=== PATIENT | female | born 1950 | race Caucasian/White ===

== ENCOUNTER 2017-05-03 11:53 | Emergency (ER) | payer OTHER ==
[2017-05-03 12:12] VITALS: BMI 26.9
--- NOTE | 2017-05-03 15:08 | PDOC ---
Attending Attestation - Resident Resident Name: Anup Castellon - ED Attending Attestation I have performed the following: I have examined & evaluated the patient, The case was reviewed & discussed with the resident, I agree w/resident's findings & plan, Exceptions are as noted - Medical Decision Making 05/03/17 15:08 I, Dr. Candice Alejandro, DO, attest that this document has been prepared under my direction and personally reviewed by me in its entirety. I further attest, that it accurately reflects all work, treatment, procedures and medical decision -making performed by me.
[2017-05-03 16:07] LABS: BASOPHIL 0.9 % (0-2.0); EOSINOPHIL 1.8 % (0-4.5); MCH 31.3 pg (25.7-33.7); MCHC 34.5 g/dl (32.0-36.0); MEAN CELL VOLUME 90.7 fl (80-96); MEAN PLT VOLUME 7.3 fl (7.5-11.1); NEUTROPHILS 49.5 % (42.8-82.8); PLATELET COUNT 299 K/MM3 (134-434); RDW 13.3 % (11.6-15.6); WHITE BLOOD COUNT 9.6 K/mm3 (4.0-10.0)
[2017-05-03 16:23] LABS: URINE APPEARANCE CLEAR; URINE BILIRUBIN NEGATIVE (NEGATIVE); URINE BLOOD NEGATIVE (NEGATIVE); URINE COLOR STRAW; URINE GLUCOSE (UA) NEGATIVE (NEGATIVE); URINE KETONE TRACE (NEGATIVE); URINE NITRITE NEGATIVE (NEGATIVE); URINE PROTEIN NEGATIVE (NEGATIVE); URINE UROBILINOGEN NEGATIVE mg/dL (0.2-1.0)
[2017-05-03] MEDS ORDERED: ACETAMINOPHEN 1000 MG/100 ML VIAL (NON FORMULARY) IVPB ONE (16:28)
[2017-05-03] MEDS ORDERED: ACETAMINOPHEN INJECTION 100 ML IVPB ONE (16:29)
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
[2017-05-03 16:58] LABS: ANION GAP 11 (8-16); CALCIUM 9.4 mg/dL (8.5-10.1); CO2 25 mmol/L (21-32); CREATININE 0.9 mg/dL (0.55-1.02); GLUCOSE,RANDOM 106 mg/dL (74-106)
[2017-05-03 16:59] LABS: ALBUMIN 3.9 g/dl (3.4-5.0); ALK PHOS 74 U/L (45-117); BILIRUBIN,TOTAL 0.7 mg/dL (0.2-1.0); SGOT/AST 26 U/L (15-37); SGPT/ALT 25 U/L (12-78); TOT PROT 7.6 g/dl (6.4-8.2)
[2017-05-03] MEDS ORDERED: morphine CARPU-JECT 4 MG/1 ML DISP.SYRIN IVPUSH ONE (18:07)
[2017-05-03] MEDS ORDERED: morphine CARPU-JECT 10 MG/1 ML DISP.SYRIN ONE (18:11)
[2017-05-03 19:21] LABS: URINE LEUK ESTERASE Negative (NEGATIVE)
[2017-05-03 20:25] VITALS: BP 132/77; PULSE 89; TEMP 98.3
--- NOTE | 2017-05-03 20:40 | PDOC ---
*Physical Exam - Vital Signs Last Vital Signs Temp Pulse Resp BP Pulse Ox 98.3 F 89 20 132/77 97 05/03/17 20:24 05/03/17 20:24 05/03/17 20:24 05/03/17 20:24 05/03/17 20:24 05/03/17 20:43 - Physical Exam General Appearance: Yes: Nourished, Appropriately Dressed. No: Apparent Distress HEENT: positive: EOMI, EDILSON Gastrointestinal/Abdominal: positive: Normal Bowel Sounds, Tender (RLQ tenderness To deep palpation.), Flat, Soft ED Treatment Course - LABORATORY CBC & Chemistry Diagram: 05/03/17 16:00 05/03/17 16:00 - ADDITIONAL ORDERS Additional order review: Laboratory Results 05/03/17 05/03/17 16:14 16:00 Sodium 140 Potassium 5.0 Chloride 104 Carbon Dioxide 25 Anion Gap 11 BUN 10 D Creatinine 0.9 Creat Clearance w eGFR > 60 Random Glucose 106 Calcium 9.4 Total Bilirubin 0.7 D AST 26 ALT 25 Alkaline Phosphatase 74 Total Protein 7.6 Albumin 3.9 Lipase 132 Urine Color Straw Urine Appearance Clear Urine pH 6.0 Ur Specific [place] 1.015 Urine Protein Negative Urine Glucose (UA) Negative Urine Ketones Trace H Urine Blood Negative Urine Nitrite Negative Urine Bilirubin Negative Urine Urobilinogen Negative Ur Leukocyte Esterase Negative 05/03/17 16:00 RBC 4.61 MCV 90.7 MCHC 34.5 RDW 13.3 MPV 7.3 L Neutrophils % 49.5 D Lymphocytes % 37.3 Monocytes % 10.5 H Eosinophils % 1.8 Basophils % 0.9 - Medications Given in the ED: ED Medications Discontinued Medications Generic Name Dose Route Start Last Admin Trade Name Milesq PRN Reason Stop Dose Admin Acetaminophen 1,000 mg 05/03/17 16:28 05/03/17 16:34 Ofirmev Injection - IVPB 05/03/17 16:29 1,000 mg ONCE ONE Administration Morphine Sulfate 4 mg 05/03/17 18:07 05/03/17 18:10 Morphine Injection - IVPUSH 05/03/17 18:08 4 mg ONCE ONE Administration Medical Decision Making - Medical Decision Making 66 year old female with chronic abdominal pain presenting with worsening abdominal pain. CT abdomen pelvis negative for any acute pathology but did show hepatic steatosis and some Lumbar spinal stenosis. Spoke with patient and abdominal pain still there in the right lower quadrant with some RLQ tenderness to palpation. However patient admits that the pain is worse with twisting movements. Most likely pain form adhesions vs. MSK pain. Not appendicitis as she had that removed yeas prior. No serious pathology to admit her or keep her in the ED for further work up. 05/03/17 20:31 *DC/Admit/Observation/Transfer Diagnosis at time of Disposition: Abdominal pain Qualifiers: Abdominal location: right lower quadrant Qualified Code(s): R10.31 - Right lower quadrant pain; R10.31 - Right lower quadrant pain - Discharge Dispostion Disposition: HOME Condition at time of disposition: Improved Admit: No - Referrals Referrals: Eliseo Servin MD [Primary Care Provider] - - Patient Instructions Additional Instructions: You were seen for abdominal pain. The CT of your abdomen did not show any sort of abnormality in your stomach. Please follow up with your GI doctor. Please take Tylenol and Maalox as needed. Please return to the ED if you have abdominal pain that doesn't allow you to eat or sleep or if you have nausea, vomiting, or diarrhea that is not controlled with over the counter medications.
--- NOTE | 2017-05-04 10:08 | EKG ---
Test Reason : Blood Pressure : / mmHG Vent. Rate : 065 BPM Atrial Rate : 065 BPM P-R Int : 182 ms QRS Dur : 076 ms QT Int : 452 ms P-R-T Axes : 067 020 038 degrees QTc Int : 470 ms POOR DATA QUALITY, INTERPRETATION MAY BE ADVERSELY AFFECTED NORMAL SINUS RHYTHM NORMAL ECG WHEN COMPARED WITH ECG OF 30-JUN-2016 10:48, NO SIGNIFICANT CHANGE WAS FOUND Confirmed by AISLINN VIRK MD ([id number]) on 05/04/2017 10:07:46 AM Referred By: Confirmed By:AISLINN VIRK MD
== END 2017-05-03 21:37 | disposition home or self-care (01) ==
LOC: JER 11:53
PROC: 3E033NZ Introduction of Analgesics, Hypnotics, Sedatives into Peripheral Vein, Percutaneous Approach (ICD-10-PCS; principal; 2017-05-03)
DX: R10.30 Lower abdominal pain, unspecified (principal); I10 Essential (primary) hypertension; E78.00 Pure hypercholesterolemia, unspecified; E03.9 Hypothyroidism, unspecified; K66.0 Peritoneal adhesions (postprocedural) (postinfection)
CPT/HCPCS: 36415; 74176-TC; 80053; 81003; 83690; 85025; 87086; 93005; 93010; 99283-25

== ENCOUNTER 2018-08-08 16:53 | Emergency (ER) | payer BC, OTHER ==
[2018-08-08 17:07] VITALS: BMI 28.2
--- NOTE | 2018-08-08 17:09 | PDOC ---
Rapid Medical Evaluation Chief Complaint: Injury Medical Evaluation: Allergies Allergy/AdvReac Type Severity Reaction Status Date / Time Iodinated Contrast- Oral and Allergy Severe Verified 08/08/18 17:04 IV Dye [Iodinated Contrast Media - Oral and] 08/08/18 17:05 I have performed a brief in-person evaluation of this patient. The patient presents with a chief complaint of: fall in [email or web address] over broken tiles/ fell to right side/ No head injury Pertinent physical exam findings: amb but with mild limp, Immobility to right shoulder with fullness to upper arm. NV intact I have ordered the following: right shoulder/ right hip and pelvis , ibuprofen 600mg given The patient will proceed to the ED for further evaluation. 08/08/18 17:11 Discharge Disposition - Diagnosis Fall Qualifiers: Encounter type: initial encounter Qualified Code(s): W19.XXXA - Unspecified fall, initial encounter - Discharge Dispostion Condition at time of disposition: Stable - Referrals - Patient Instructions - Post Discharge Activity
[2018-08-08] MEDS ORDERED: IBUPROFEN 600 MG TABLET (FP) PO ONE ×2 (17:11→17:12)
--- NOTE | 2018-08-08 17:34 | PDOC ---
History of Present Illness - General Chief Complaint: Injury Stated Complaint: FALL/BODY PAINS Time Seen by Provider: 08/08/18 17:19 History Source: Patient Exam Limitations: No Limitations - History of Present Illness Initial Comments: 08/08/18 17:22 [id number] with h/o HTN, HLD, hypothyroidism, herniated disks, asthma, bowel obstructions, many abdominal surgeries, GERD, and obesity. She presents with multiple areas of bodily pain s/p GLF. She was walking through the store, tripped on broken tiles on the floor, subsequently lost her balance and fell onto her right thigh/hip and right posterior ribs, tried to brace her fall with her right hand and hurt her wrist, also in the process injured her shoulder and clavicle (though states did not strike the shoulder or clavicle on the floor). Denies any preceding symptoms, hitting her head, hurting her neck, losing consciousness, or any subsequent symptoms now other than the above mentioned areas of pain. She denies RARIAGA, dizziness/lightheadedness, vision change, neck pain, new midline back pain, SOB, abdominal pain, hematuria, bruising, numbness , tingling, focal weakness, or other symptoms. She was able to pick herself up and walk after the incident but needed help to do so. Past History - Past Medical History Allergies/Adverse Reactions: Allergies Allergy/AdvReac Type Severity Reaction Status Date / Time Iodinated Contrast- Oral and Allergy Severe Verified 08/08/18 17:04 IV Dye [Iodinated Contrast Media - Oral and] Home Medications: Ambulatory Orders Enalapril Maleate [Vasotec -] 10 mg PO DAILY 10/28/12 Levothyroxine [Synthroid -] 88 mcg PO DAILY 10/28/12 Amlodipine Besylate [Norvasc -] 10 mg PO HS 09/09/15 Cholecalciferol (Vitamin D3) [Vitamin D3] 1,000 unit PO DAILY 09/09/15 Cyanocobalamin [Vitamin B12 -] 1,000 mcg PO DAILY 09/09/15 Estrogens, Conjugated [Premarin] 0.45 mg PO DAILY 09/09/15 Rosuvastatin Calcium [Crestor] 10 mg PO HS 06/28/16 Celecoxib [Celebrex] 100 mg PO DAILY #14 capsule 06/30/16 Pantoprazole Sodium [Protonix -] 40 mg PO DAILY #30 tablet.ec 06/30/16 Polyethylene Glycol 3350 [Miralax 119 gm Btl -] 17 gm PO DAILY #1 bottle Asthma: Yes (mild) COPD: No GI Disorders: Yes (bowel obstructions, gerd, hh, diverticulosis, colon polyps) HTN: Yes Hypercholesterolemia: Yes Kidney Stones: Yes Thyroid Disease: Yes (hypo, multinodular goiter) - Surgical History Abdominal Surgery: Yes (x 9, LYSIS OF ADHESIONS SURGERIES, MESH VENTRAL HERNIA REPAIR) Appendectomy: Yes Orthopedic Surgery: Yes (LT KNEE ARTHROSCOPY; LT FOOT BUNIONECTOMIES) - Immunization History Immunization Up to Date: Yes - Suicide/Smoking/Psychosocial Hx Smoking Status: No Smoking History: Never smoked Have you smoked in the past 12 months: No Number of Cigarettes Smoked Daily: 0 If you are a former smoker, when did you quit?: 1982 Hx Alcohol Use: No Drug/Substance Use Hx: No Substance Use Type: None Hx Substance Use Treatment: No Review of Systems - Review of Systems Able to Perform ROS?: Yes Comments:: 08/08/18 17:35 GEN: no fever, chills, malaise, generalized weakness, or weight change HEENT: no ear pain, sore throat, vision change, or eye pain CV: right upper chest pain, no palpitations, lightheadedness, syncope, or edema RESP: no cough, wheezing, or SOB GI: no abdominal pain, nausea, or vomiting : no dysuria, hematuria, incontinence, retention, bleeding, or discharge MSK: right posterior flank pain, right clavicle pain, right shoulder pain, right wrist pain, otherwise no neck/back pain, muscle weakness/pain, or joint swelling/pain NEURO: no headache, seizure, vertigo, numbness, tingling, or focal weakness PSYCH: no substance use, no behavior change SKIN: no jaundice, no rash ROS otherwise negative except as noted in HPI *Physical Exam - Vital Signs Last Vital Signs Temp Pulse Resp BP Pulse Ox 93 H 18 150/86 99 08/08/18 17:06 08/08/18 17:06 08/08/18 17:06 08/08/18 17:06 - Physical Exam Comments: 08/08/18 17:48 GENERAL: uncomfortable appearing, mild-moderate distress, A/Ox4, answers questions appropriately HEENT: PERRLA, EOMI, moist mucous membranes NECK/BACK: no midline ttp, no spinal stepoff or deformity, no hematoma, full ROM , neck supple CHEST WALL: right inferior posterior costal margin ttp without overt stepoff or deformity, no bruising, +ttp right anterior superior chest wall extending from medial 1/3 of clavicle to midclavicular line down to 2nd intercostal space without skin changes or overt bony deformity CARDIOVASCULAR: regular rate/rhythm, normal S1S2, no MGR, strong peripheral pulses, capillary refill <2 seconds, extremities wwp, no edema LUNGS/RESPIRATORY: no respiratory distress, CTAB, no diminished breath sounds, a bit shallow breathing states 2/2 pain with inhalation GI/ABDOMEN: symmetric [id number], normoactive BS, soft, no ttp, no midline pulsatile masses : no flank hematoma, +right CVA ttp EXTREMITIES: no muscle atrophy, no acute deformity, no edema SKIN: warm and dry, no pallor, no jaundice, no rash, no bruising, no skin breakdown, no cuts, no lesions NEUROLOGICAL: GCS 15, CN II-XII grossly intact, 5/5 strength proximally and distally, no facial droop Moderate Sedation - Procedure Monitoring Vital Signs: Procedure Monitoring Vital Signs Temperature Pulse Rate 93 H 08/08/18 17:06 Respiratory Rate 18 08/08/18 17:06 Blood Pressure 150/86 08/08/18 17:06 O2 Sat by Pulse Oximetry (%) 99 08/08/18 17:06 ED Treatment Course - LABORATORY CBC & Chemistry Diagram: 08/08/18 18:40 08/08/18 18:40 - Medications Given in the ED: ED Medications Discontinued Medications Generic Name Dose Route Start Last Admin Trade Name Freq PRN Reason Stop Dose Admin Ibuprofen 600 mg 08/08/18 17:11 08/08/18 17:14 Motrin - PO 08/08/18 17:12 600 mg ONCE ONE Administration Medical Decision Making - Medical Decision Making Pt p/w fall and multiple areas of right sided pain including clavicle, shoulder , lower ribs, wrist, and thigh. Initial Vital Signs Pulse Resp BP Pulse Ox 93 H 18 150/86 99 08/08/18 17:06 08/08/18 17:06 08/08/18 17:06 08/08/18 17:06 Exam: As noted in Physical Exam section. DDX IBNLT: W/U ordered: Labs as below, Radiology as below TX ordered: Ibuprofen given up front, Morphine just prior to going for XRs XRs Laboratory Tests 08/08/18 08/08/18 08/08/18 18:40 18:40 18:40 WBC 9.8 RBC 4.71 Hgb 15.3 Hct 44.2 MCV 93.9 MCH 32.4 MCHC 34.5 RDW 13.2 Plt Count 291 MPV 7.9 Absolute Neuts (auto) 5.5 Neutrophils % 55.7 Lymphocytes % 33.0 Monocytes % 9.6 Eosinophils % 1.2 Basophils % 0.5 Nucleated RBC % 0 PT with INR 11.00 INR 0.93 Sodium 139 Potassium 4.1 Chloride 102 Carbon Dioxide 28 Anion Gap 9 BUN 10 Creatinine 0.8 Creat Clearance w eGFR > 60 Random Glucose 118 H Calcium 9.6 Total Bilirubin 0.4 AST 24 ALT 20 Alkaline Phosphatase 86 Creatine Kinase 85 Total Protein 8.3 H Albumin 4.3 Urine Color Urine Appearance Urine pH Ur Specific [place] Urine Protein Urine Glucose (UA) Urine Ketones Urine Blood Urine Nitrite Urine Bilirubin Urine Urobilinogen Ur Leukocyte Esterase 08/08/18 19:30 WBC RBC Hgb Hct MCV MCH MCHC RDW Plt Count MPV Absolute Neuts (auto) Neutrophils % Lymphocytes % Monocytes % Eosinophils % Basophils % Nucleated RBC % PT with INR INR Sodium Potassium Chloride Carbon Dioxide Anion Gap BUN Creatinine Creat Clearance w eGFR Random Glucose Calcium Total Bilirubin AST ALT Alkaline Phosphatase Creatine Kinase Total Protein Albumin Urine Color Yellow Urine Appearance Clear Urine pH 5.0 Ur Specific [place] 1.015 Urine Protein Negative Urine Glucose (UA) Negative Urine Ketones Negative Urine Blood Negative Urine Nitrite Negative Urine Bilirubin Negative Urine Urobilinogen Negative Ur Leukocyte Esterase Negative Reassessment: Patient states feels better but some residual pain. I remove the sling and she is able to range the shoulder full ROM, some pain but not restrictive. I have placed order for Robaxin here as she has spasm. Repeat VS: DISCHARGE The Pt has gotten significant relief of symptoms while in the ED Radiographs are negative for acute pathology. They have been observed without AMS, n/v, LOC, or focal neuro findings in the ED. Workup is not concerning for emergency-level pathology at this time. The Pt is appropriate for discharge with close outpatient follow up. They are comfortable with this plan and will follow up with their primary care provider in 1-3 days. Return precautions are discussed and they will come back to the ER if necessary. 08/08/18 19:52 *DC/Admit/Observation/Transfer Diagnosis at time of Disposition: Muscle spasm Fall Qualifiers: Encounter type: initial encounter Qualified Code(s): W19.XXXA - Unspecified fall, initial encounter Sprain of shoulder, right Qualifiers: Encounter type: initial encounter Shoulder sprain type: unspecified sprain Qualified Code(s): S43.401A - Unspecified sprain of right shoulder joint, initial encounter - Discharge Dispostion Disposition: HOME Condition at time of disposition: Stable Decision to Admit order: No - Referrals Referrals: [facility] [place] [Provider Group] - Patient Instructions Printed Discharge Instructions: How to Use a Sling, DI for Shoulder Sprain Additional Instructions: You were seen in the ER for a fall with multiple areas of pain afterwards. We did an exam, imaging studies, and laboratories, and there are no concerning abnormalities. We gave you medications here in the ER which did help. After our assessment, we do not believe you are having a medical emergency at this time, and we believe you are safe to go home. Take Tylenol and/or Motrin at home for the pain. Please follow up with your primary care provider tomorrow. Call their clinic tomorrow, tell them you were seen in the ER, and tell them you need a follow-up. We are providing referral information for our primary care clinic in case you need a new provider. If you have any new or worsening symptoms, please come back to the ER at any time (24 hours a day). If you are having severe or life threatening symptoms, or symptoms that make it unsafe to drive or have someone drive you, please call 911. Wear the sling only sometimes for comfort, not all the time. Do range of motion exercises with the right shoulder every day as we discussed. This will help you avoid getting "frozen shoulder". - Post Discharge Activity
[2018-08-08] MEDS ORDERED: morphine CARPU-JECT 4 MG/1 ML DISP.SYRIN IVPUSH ONE (17:47)
[2018-08-08] MEDS ORDERED: morphine SULFATE 4 MG/ML VIAL ONE (17:49)
--- NOTE | 2018-08-08 18:33 | PDOC ---
Attending Attestation - HPI HPI: 08/08/18 18:33 The patient is a 68 year old female with a PMH of HTN, HLD, hypothyroidism, herniated disks, asthma, bowel obstructions, many abdominal surgeries, GERD, and obesity s/p fall today. Patient was walking in a store and suddenly tripped on broken tiles causing her to fall onto her right hip and right hand. Patient is now reporting pain to the right shoulder, right clavicle, right hip, and right wrist. Patient denies head trauma. Denies LOC. Patient is not on anticoagulants. Patient was able to ambulate after the fall with help, but states that walking exacerbates the pain in her hip. Patient denies any headache, dizziness, lightheadedness, visual changes, neck pain, back pain, shortness of breath, cheat pain, abdominal pain, numbness/ tingling/loss of sensation. Allergies: Iodine Surgeries: Abdominal surgeries Social Hx: No reported alcohol, drug or cigarette use. - Physicial Exam PE: 08/08/18 19:16 ADULT PHYSICAL EXAM Constitutional: Awake, alert, oriented. No acute distress. Head: Normocephalic. Atraumatic Neck: Supple. Full ROM. No lymphadenopathy. Cardiovascular: Regular rate. Regular rhythm. S1, S2 regular. Distal pulses are 2+ and symmetric. Pulmonary/Chest: No evidence of respiratory distress. Clear to auscultation bilaterally No wheezing, rales or rhonchi. Abdominal: Soft and non-distended. There is no tenderness. No rebound, guarding or rigidity. No organomegaly. No palpable masses. Good bowel sounds. Back: No CVA tenderness. Musculoskeletal: No edema. No cyanosis. No clubbing. Full range of motion in all extremities. Nocalf tenderness. Radial/pedal pulses are intact and 2+ bilaterally Skin: Skin is warm and dry. No petechiae. No purpura. Neurological: Alert and oriented to person, place, and time. Cranial nerves II -XII are grossly intact. Normal speech. Strength is grossly symmetric. No sensory deficits. Psychiatric: Good eye contact. Normal interaction, affect and behavior. <Trice Clifton - Last Filed: 08/08/18 19:16> - Resident Resident Name: Elo Arias - ED Attending Attestation I have performed the following: I have examined & evaluated the patient, The case was reviewed & discussed with the resident, I agree w/resident's findings & plan, Exceptions are as noted - Medical Decision Making 08/08/18 18:33 I, Dr. Candice Alejandro, DO, attest that this document has been prepared under my direction and personally reviewed by me in its entirety. I further attest, that it accurately reflects all work, treatment, procedures and medical decision -making performed by me. 08/08/18 19:25 a/p: 68yo female with mechanical fall while shopping today -no head injury, no loc -no midline c/t/l spine ttp, no stepoffs or deformities -R shoulder, R arm, R rib, r hip ttp -was able to get up and walk after the fall -will obtain xrays, labs, ua -will monitor and reassess -morphine and tylenol for pain 08/08/18 20:30 no acute xrays fractures visualized pt feeling better ambulates with a steady gait pain controlled ua negative pt stable for dc to home <Candice Alejandro - Last Filed: 08/08/18 20:31>
[2018-08-08 18:38] VITALS: BP 109/67; PULSE 74
[2018-08-08 18:51] LABS: BASO % 0.5 % (0-2.0); EOS % 1.2 % (0-4.5); HEMATOCRIT 44.2 % (32.4-45.2); HEMOGLOBIN 15.3 GM/dL (10.7-15.3); MCH 32.4 pg (25.7-33.7); MCHC 34.5 g/dl (32.0-36.0); MEAN CELL VOLUME 93.9 fl (80-96); MEAN PLT VOLUME 7.9 fl (7.5-11.1); MONO % 9.6 % (3.8-10.2); NEUT % 55.7 % (42.8-82.8); PLATELET COUNT 291 K/MM3 (134-434); RBC 4.71 M/mm3 (3.60-5.2); RDW 13.2 % (11.6-15.6); WHITE BLOOD COUNT 9.8 K/mm3 (4.0-10.0)
[2018-08-08 19:01] LABS: INR 0.93 (0.83-1.09)
[2018-08-08 19:26] LABS: ALBUMIN 4.3 g/dl (3.4-5.0); ALK PHOS 86 U/L (45-117); ANION GAP 9 MMOL/L (8-16); BILIRUBIN,TOTAL 0.4 mg/dL (0.2-1); BLOOD UREA NITROGEN 10 mg/dL (7-18); CALCIUM 9.6 mg/dL (8.5-10.1); CHLORIDE 102 mmol/L (98-107); CO2 28 mmol/L (21-32); CREATININE 0.8 mg/dL (0.55-1.3); GLUCOSE,RANDOM 118 mg/dL (74-106); POTASSIUM 4.1 mmol/L (3.5-5.1); SGOT/AST 24 U/L (15-37); SGPT/ALT 20 U/L (13-61); SODIUM 139 mmol/L (136-145); TOT PROT 8.3 g/dl (6.4-8.2)
[2018-08-08] MEDS ORDERED: METHOCARBAMOL 500 MG TABLET PO ONE (19:27)
[2018-08-08 19:46] LABS: URINE APPEARANCE CLEAR; URINE BILIRUBIN NEGATIVE (<2.0 mg/dL); URINE COLOR YELLOW; URINE GLUCOSE (UA) NEGATIVE (NEGATIVE); URINE KETONE NEGATIVE (NEGATIVE); URINE LEUK ESTERASE NEGATIVE (NEGATIVE); URINE NITRITE NEGATIVE (NEGATIVE); URINE PROTEIN NEGATIVE (NEGATIVE); URINE UROBILINOGEN NEGATIVE mg/dL (0.2-1.0)
[2018-08-08] MEDS ORDERED: METHOCARBAMOL 500 MG TABLET ONE (19:48)
== END 2018-08-08 20:29 | disposition home or self-care (01) ==
LOC: JER 16:53
PROC: 3E033NZ Introduction of Analgesics, Hypnotics, Sedatives into Peripheral Vein, Percutaneous Approach (ICD-10-PCS; principal; 2018-08-08)
DX: S43.401A Unspecified sprain of right shoulder joint, initial encounter (principal); M62.838 Other muscle spasm; W18.39XA Other fall on same level, initial encounter; Y93.89 Activity, other specified; Y92.512 Supermarket, store or market as the place of occurrence of the external cause; Z87.891 Personal history of nicotine dependence; J45.909 Unspecified asthma, uncomplicated; I10 Essential (primary) hypertension; K21.9 Gastro-esophageal reflux disease without esophagitis; E78.00 Pure hypercholesterolemia, unspecified; E03.9 Hypothyroidism, unspecified
CPT/HCPCS: 36415; 71046-TC-FY; 71101-TC-RT-FY; 73000-TC-RT-FY; 73030-TC-RT-FY; 73110-TC-RT-FY; 73130-TC-RT-FY; 73523-TC-FY; 80053; 81003; 82550; 85025; 85610; 86850; 86900; 86901; 99282-25

== ENCOUNTER 2021-10-03 04:45 | Day surgery (SDC) | payer OTHER ==
[2021-09-28 11:10] VITALS: BMI 33.6
[2021-10-03] MEDS ORDERED: KETAMINE HCL 500 MG/10 ML VIAL ONE (07:18)
[2021-10-03 08:43] VITALS: TEMP 97
[2021-10-03 09:25] VITALS: BP 114/59; PULSE 84
== END 2021-10-03 09:26 | disposition home or self-care (01) ==
LOC: JASU-ENDO 04:45
PROVIDERS: ATTEND Internal Medicine Gastroenterology
PROC: 0DBL8ZX Excision of Transverse Colon, Via Natural or Artificial Opening Endoscopic, Diagnostic (ICD-10-PCS; principal; 2021-10-03 08:00)
DX: Z12.11 Encounter for screening for malignant neoplasm of colon (principal); D12.3 Benign neoplasm of transverse colon; K63.89 Other specified diseases of intestine; K57.30 Diverticulosis of large intestine without perforation or abscess without bleeding; Z86.010 Personal history of colon polyps
CPT/HCPCS: 88305-TC

== ENCOUNTER 2021-11-24 12:58 | Observation (INO) | payer OTHER ==
[2021-11-24 13:06] VITALS: BMI 32.0
[2021-11-24] MEDS ORDERED: MECLIZINE HCL 25 MG TABLET (FP) PO ONE (14:14)
[2021-11-24] MEDS ORDERED: SODIUM CHLORIDE 0.9% 500 ML INFUS.BAG IV ONE (14:14)
[2021-11-24] MEDS ORDERED: MECLIZINE HCL 25 MG TABLET (FP) ONE (14:19)
[2021-11-24 15:03] LABS: BASO % 0.6 % (0-2.0); EOS % 1.4 % (0-4.5); HEMATOCRIT 43.1 % (32.4-45.2); HEMOGLOBIN 14.2 GM/dL (10.7-15.3); LYMPH % 41.9 % (8-40); MCHC 32.9 g/dl (32.0-36.0); MEAN CELL VOLUME 91.2 fl (80-96); MEAN PLT VOLUME 7.9 fl (7.5-11.1); MONO % 8.2 % (3.8-10.2); NEUT % 47.9 % (42.8-82.8); PLATELET COUNT 354 10^3/uL (134-434); RBC 4.73 M/mm3 (3.60-5.2); RDW 13.5 % (11.6-15.6); WHITE BLOOD COUNT 9.7 K/mm3 (4.0-10.0)
[2021-11-24 15:19] LABS: CHLORIDE 107 mmol/L (98-107); SODIUM 139 mmol/L (136-145)
[2021-11-24 15:21] LABS: CALCIUM 9.7 mg/dL (8.5-10.1)
[2021-11-24 15:22] LABS: ALBUMIN 4.2 g/dl (3.4-5.0); ANION GAP 8 MMOL/L (8-16); BLOOD UREA NITROGEN 9.4 mg/dL (7-18); CO2 24 mmol/L (21-32); GLUCOSE,RANDOM 99 mg/dL (74-106); MAGNESIUM 2.1 mg/dL (1.8-2.4)
[2021-11-24 15:25] LABS: CREATININE 0.7 mg/dL (0.55-1.3); SGOT/AST 33 U/L (15-37); SGPT/ALT 27 U/L (13-61)
[2021-11-24 15:26] LABS: BILIRUBIN,TOTAL 0.7 mg/dL (0.2-1); TOT PROT 7.6 g/dl (6.4-8.2)
[2021-11-24 15:28] LABS: ALK PHOS 77 U/L (45-117)
[2021-11-24 17:30] LABS: URINE APPEARANCE CLEAR; URINE BILIRUBIN NEGATIVE (NEGATIVE); URINE COLOR YELLOW; URINE GLUCOSE (UA) NEGATIVE (NEGATIVE); URINE KETONE TRACE (NEGATIVE); URINE LEUK ESTERASE NEGATIVE (NEGATIVE); URINE NITRITE NEGATIVE (NEGATIVE); URINE PROTEIN NEGATIVE (NEGATIVE); URINE UROBILINOGEN 0.2 mg/dL (0.2-1.0)
[2021-11-24] MEDS ORDERED: ASPIRIN 81 MG CHEWABLE TABLETS PO ONE (18:05)
[2021-11-24] MEDS ORDERED: ASPIRIN 81 MG CHEWABLE TABLETS ONE (18:30)
[2021-11-24] MEDS ORDERED: MECLIZINE HCL 25 MG TABLET (FP) PO PRN (20:40)
[2021-11-24] MEDS ORDERED: ONDANSETRON 4 MG/2 ML VIAL IVPUSH PRN (20:42)
[2021-11-24] MEDS ORDERED: CYCLOBENZAPRINE HCL 5 MG TABLET PO PRN (20:43)
[2021-11-24] MEDS ORDERED: ROSUVASTATIN CA 5 MG TABLET PO SCH (22:00)
[2021-11-24] MEDS ORDERED: amLODIPine BESYLATE 5 MG TABLET (FP) PO SCH (22:00)
[2021-11-24] MEDS ORDERED: amLODIPine BESYLATE 5 MG TABLET (FP) ONE (22:38)
[2021-11-24] MEDS ORDERED: PREGABALIN 50 MG CAPSULE ONE (22:38)
[2021-11-24] MEDS: PREGABALIN 50 MG CAPSULE PO SCH (22:57)
[2021-11-25 06:42] LABS: BASO % 0.8 % (0-2.0); EOS % 3.2 % (0-4.5); HEMATOCRIT 38.9 % (32.4-45.2); LYMPH % 48.5 % (8-40); MCH 30.4 pg (25.7-33.7); MCHC 33.5 g/dl (32.0-36.0); MEAN CELL VOLUME 90.8 fl (80-96); MEAN PLT VOLUME 7.6 fl (7.5-11.1); MONO % 11.6 % (3.8-10.2); NEUT % 35.9 % (42.8-82.8); PLATELET COUNT 312 10^3/uL (134-434); RBC 4.28 M/mm3 (3.60-5.2); RDW 13.2 % (11.6-15.6); WHITE BLOOD COUNT 5.9 K/mm3 (4.0-10.0)
[2021-11-25 07:00] LABS: CHLORIDE 109 mmol/L (98-107); SODIUM 141 mmol/L (136-145)
[2021-11-25] MEDS ORDERED: LEVOTHYROXINE NA 100 MCG TABLET (FP) PO SCH ×2 (07:00)
[2021-11-25 07:05] LABS: ALBUMIN 3.4 g/dl (3.4-5.0); ANION GAP 4 MMOL/L (8-16); CO2 27 mmol/L (21-32)
[2021-11-25 07:07] LABS: GLUCOSE,RANDOM 98 mg/dL (74-106)
[2021-11-25 07:08] LABS: CREATININE 0.6 mg/dL (0.55-1.3); SGOT/AST 26 U/L (15-37); SGPT/ALT 21 U/L (13-61)
[2021-11-25 07:10] LABS: TOT PROT 6.4 g/dl (6.4-8.2)
[2021-11-25 07:11] LABS: BILIRUBIN,TOTAL 0.7 mg/dL (0.2-1); CHOLESTEROL 162 mg/dL (50-200); LDL CHOLESTEROL (ONLY SJRH) 66 mg/dL (5-100); TRIGLYCERIDES 180 mg/dL (0-150)
[2021-11-25 07:12] LABS: ALK PHOS 66 U/L (45-117); HDL CHOLESTEROL 51 mg/dL (40-60)
[2021-11-25] MEDS ORDERED: LEVOTHYROXINE NA 50 MCG TABLET (FP) ONE (07:46)
[2021-11-25] MEDS ORDERED: PREGABALIN 50 MG CAPSULE ONE (09:21)
[2021-11-25] MEDS ORDERED: ASPIRIN COATED 81 MG TABLET.EC ONE (09:22)
[2021-11-25] MEDS ORDERED: FUROSEMIDE 20 MG TABLET (FP) ONE (09:22)
[2021-11-25] MEDS ORDERED: ESCITALOPRAM OXALATE 10 MG TABLET ONE (09:22)
[2021-11-25] MEDS ORDERED: ENALAPRIL MALEATE 5 MG TABLET ONE (09:22)
[2021-11-25] MEDS ORDERED: ENOXAPARIN NA (PORCINE) 40 MG/0.4 ML DISP.SYRIN SQ ONE (09:23)
[2021-11-25] MEDS: PREGABALIN 50 MG CAPSULE PO SCH (09:41)
[2021-11-25] MEDS ORDERED: ESCITALOPRAM OXALATE 10 MG TABLET PO SCH (10:00)
[2021-11-25] MEDS ORDERED: ENOXAPARIN NA (PORCINE) 40 MG/0.4 ML DISP.SYRIN SQ SCH (10:00)
[2021-11-25] MEDS ORDERED: FUROSEMIDE 20 MG TABLET (FP) PO SCH (10:00)
[2021-11-25] MEDS ORDERED: ASPIRIN COATED 81 MG TABLET.EC PO SCH (10:00)
[2021-11-25] MEDS ORDERED: ENALAPRIL MALEATE 10 MG TABLET PO SCH (10:00)
[2021-11-25] MEDS ORDERED: SODIUM CHLORIDE 500 ML IV STA (11:44)
[2021-11-25 14:44] VITALS: BP 114/66; PULSE 76; TEMP 98.1
== END 2021-11-25 16:23 | disposition home or self-care (01) ==
LOC: JER 12:58 → JERBED 19:27 → INTOOBSV 19:27 → UNDOADMOB 19:27 → JERBED 11-25 13:48
PROVIDERS: ADMIT Internal Medicine; ATTEND Internal Medicine
PROC: 3E023GC Introduction of Other Therapeutic Substance into Muscle, Percutaneous Approach (ICD-10-PCS; principal; 2021-11-25)
PROC: 3E0337Z Introduction of Electrolytic and Water Balance Substance into Peripheral Vein, Percutaneous Approach (ICD-10-PCS; 2021-11-25)
DX: I25.10 Atherosclerotic heart disease of native coronary artery without angina pectoris (principal); E78.00 Pure hypercholesterolemia, unspecified; K57.90 Diverticulosis of intestine, part unspecified, without perforation or abscess without bleeding; I10 Essential (primary) hypertension; J45.909 Unspecified asthma, uncomplicated; K21.9 Gastro-esophageal reflux disease without esophagitis; E03.9 Hypothyroidism, unspecified; R77.8 Other specified abnormalities of plasma proteins; I71.2 Thoracic aortic aneurysm, without rupture; Z90.79 Acquired absence of other genital organ(s); E66.9 Obesity, unspecified; Z68.32 Body mass index [BMI] 32.0-32.9, adult; M79.10 Myalgia, unspecified site; R42 Dizziness and giddiness; Z87.891 Personal history of nicotine dependence
CPT/HCPCS: 36415; 70450-TC; 70551-TC; 71045-TC-FY; 80053; 80061; 81003; 83036; 83735; 84100; 84443; 84484; 85025; 87086; 93005; 93010; 93306-TC; 96372; 99285-25; C9803-CS; G0378; U0003; U0005

== ENCOUNTER 2023-06-04 04:27 | Day surgery (SDC) | payer OTHER ==
[2023-05-29 11:58] VITALS: BMI 31.4
[2023-06-04] MEDS ORDERED: BUPIVACAINE HCL/PF 0.25% (2.5MG/ML) 10 ML VIAL ONE (10:26)
[2023-06-04] MEDS ORDERED: HEPARIN NA (PORCINE) 5,000 UNITS/ML 1ML VIAL ONE (10:26)
[2023-06-04] MEDS ORDERED: ACETAMINOPHEN INJECTION 100 ML IVPB ONE (10:58)
[2023-06-04] MEDS ORDERED: FENTANYL CITRATE/PF 50 MCG/ML VIAL ONE ×4 (11:00→14:08)
[2023-06-04] MEDS ORDERED: LIDOCAINE HCL/PF 2% SDV 5ML VIAL ONE (11:01)
[2023-06-04] MEDS ORDERED: PROPOFOL 40 ML ONE (11:01)
[2023-06-04] MEDS ORDERED: MIDAZOLAM HCL 2 MG/2 ML SINGLE DOSE VIAL ONE (11:01)
[2023-06-04] MEDS ORDERED: ROCURONIUM BROMIDE 50 MG/5 ML SYRINGE ONE ×2 (11:02→12:42)
[2023-06-04] MEDS ORDERED: ceFAZolin SODIUM 1 GM VIAL ONE (11:39)
[2023-06-04] MEDS ORDERED: ceFAZolin SODIUM 1 GM VIAL IVPB ONE ×2 (11:41→11:45)
[2023-06-04] MEDS ORDERED: BUPIVACAINE HCL/PF 0.5% (5MG/ML) 10 ML VIAL IJ ONE ×2 (11:42→11:52)
[2023-06-04] MEDS ORDERED: DEXAMETHASONE SOD PHOSPHATE 4 MG/1 ML VIAL ONE (11:45)
[2023-06-04] MEDS ORDERED: BUPIVACAINE HCL/PF 0.25% (2.5MG/ML) 10 ML VIAL IJ ONE ×2 (12:06)
[2023-06-04] MEDS ORDERED: ONDANSETRON 4 MG/2 ML VIAL ONE (12:09)
[2023-06-04] MEDS ORDERED: SUGAMMADEX SODIUM 200 MG/2 ML VIAL ONE (13:25)
[2023-06-04] MEDS ORDERED: KETOROLAC TROMETHAMINE 30 MG/1 ML VIAL ONE (13:46)
[2023-06-04] MEDS ORDERED: ONDANSETRON 4 MG/2 ML VIAL IVPUSH PRN (13:47)
[2023-06-04] MEDS ORDERED: KETOROLAC TROMETHAMINE 15 MG/ML VIAL IM ONE (13:47)
[2023-06-04] MEDS ORDERED: oxyCODONE HCL 5 MG TABLET PO PRN ×2 (13:47)
[2023-06-04] MEDS ORDERED: LACTATED RINGERS SOLUTION 1,000 ML IV SCH (14:00)
[2023-06-04] MEDS ORDERED: ALBUTEROL SULFATE 0.021% (0.63 MG/3 ML) VIAL.NEB NEB ONE (14:47)
[2023-06-04] MEDS ORDERED: ALBUTEROL SO4 0.083% IH SOL 2.5 MG/3 ML VIAL.NEB. NEB ONE ×2 (14:47→14:49)
[2023-06-04 17:05] VITALS: TEMP 98.6
[2023-06-04 17:15] VITALS: BP 106/57; PULSE 98; RESP 18
== END 2023-06-04 18:00 | disposition home or self-care (01) ==
LOC: JASU-SURG 04:27
PROVIDERS: ATTEND Surgery
PROC: 8E0W4CZ Robotic Assisted Procedure of Trunk Region, Percutaneous Endoscopic Approach (ICD-10-PCS; 2023-06-04)
PROC: 0WQF4ZZ Repair Abdominal Wall, Percutaneous Endoscopic Approach (ICD-10-PCS; principal; 2023-06-04 10:00)
DX: K43.9 Ventral hernia without obstruction or gangrene (principal)
CPT/HCPCS: 86850; 86900; 86901; 88300-TC; 94760; J1644

== ENCOUNTER 2023-08-28 19:30 | Emergency (ER) | payer OTHER ==
[2023-08-28 19:37] VITALS: BP 131/77; RESP 16; TEMP 97.8; BMI 31.1
[2023-08-28] MEDS ORDERED: IBUPROFEN 600 MG TABLET (FP) PO ONE (20:36)
[2023-08-28] MEDS ORDERED: LIDOCAINE 4% PATCH TP ONE (20:36)
[2023-08-28] MEDS: LIDOCAINE 5% TOPICAL PATCH TP ONE ×2 (20:40)
[2023-08-28] MEDS: IBUPROFEN 600 MG TABLET (FP) PO ONE (20:40)
[2023-08-28 22:31] VITALS: PULSE 94
[2023-08-29] MEDS ORDERED: LIDOCAINE PATCH REMOVAL MC SCH (08:00)
== END 2023-08-28 22:37 | disposition home or self-care (01) ==
LOC: JER 19:30
DX: M54.41 Lumbago with sciatica, right side (principal); M25.561 Pain in right knee; M25.562 Pain in left knee; W10.9XXA Fall (on) (from) unspecified stairs and steps, initial encounter
CPT/HCPCS: 72100-TC-FY; 72170-TC-FY; 73562-TC-LT-FY; 73562-TC-RT-FY; 99284-25